=== PATIENT | male | born 1940 | race Asian ===

== ENCOUNTER 2019-03-25 08:06 | Inpatient (IN) | payer MEDICARE ==
[~2019-03-25] VITALS: Ht 170.2 cm; Wt 83.0 kg
[2019-03-25 10:55] LABS: BASOPHILS % (AUTO) 0.5 % (0.0-5.0); EOSINOPHILS % (AUTO) 2.9 % (0.0-8.0); LYMPHOCYTES % (AUTO) 10.4 % (21.0-51.0); MEAN CORPUSCULAR HEMOGLOBIN 32.9 pg (27.0-33.0); MEAN CORPUSCULAR HGB CONC 34.5 g/dL (32.0-36.0); MEAN CORPUSCULAR VOLUME 95.3 fL (79-99); MONOCYTES % (AUTO) 10.1 % (3.0-13.0); NEUTROPHILS % (AUTO) 76.1 % (40.0-77.0); PLATELET COUNT (AUTO) 172 K/uL (130-400); RED CELL DISTRIBUTION WIDTH 14.4 % (11.0-15.5); WHITE BLOOD COUNT (AUTO) 6.1 K/uL (4.8-10.8)
[2019-03-25 10:57] VITALS: BP 151/77
[2019-03-25 11:00] LABS: CREATININE 1.3 mg/dL (0.5-1.5); POTASSIUM 4.4 mmol/L (3.5-5.1)
[2019-03-25] MEDS ORDERED: ASPI-1181 PO (11:18)
[2019-03-25] MEDS ORDERED: TELM80TA10 PO (11:18)
[2019-03-25] MEDS ORDERED: TOPI50TA24 PO (11:18)
[2019-03-25] MEDS ORDERED: ATEN25TA PO (11:18)
[2019-03-25] MEDS ORDERED: AMLO10TA7 PO (11:18)
[2019-03-25] MEDS ORDERED: TOPI25TA48 PO (11:18)
[2019-03-27] VITALS (26 sets, daily range): BP systolic 116–155; BP diastolic 66–91
[2019-03-27] MEDS: CEFAZOLIN SODIUM 1 GM VIAL IVP SCH ×4 (06:00→18:15)
[2019-03-27] MEDS ORDERED: LACTATED RINGERS 1000ML 1,000 ML IV ONE (06:49)
[2019-03-27] MEDS ORDERED: DURAMORPH PF1 MG/ML 10ML AMP IV ONE (06:52)
[2019-03-27] MEDS ORDERED: BUPIVACAINE/EPI/PF 0.25% 50 ML VIAL ONE (06:52)
[2019-03-27] MEDS ORDERED: BACITRACIN 50,000 UNIT VIAL ONE (06:53)
[2019-03-27] MEDS ORDERED: THROMBIN-JMI 20000 UNIT KIT TP ONE (06:53)
[2019-03-27] MEDS ORDERED: MIDAZOLAM HCL 1 MG/ML 2ML VIAL ONE (06:55)
[2019-03-27] MEDS ORDERED: GLYCOPYRROLATE 1 MG/5 ML SYRINGE ONE (06:55)
[2019-03-27] MEDS ORDERED: SUCCINYLCHOLINE 200MG/10ML SYR ONE (06:55)
[2019-03-27] MEDS ORDERED: DEXAMETHASONE SOD PHOSPHATE 10MG/ML 1ML VIAL ONE ×2 (06:55→08:09)
[2019-03-27] MEDS ORDERED: LIDOCAINE PF 2% 5ML ABBOJECT ONE (06:55)
[2019-03-27] MEDS ORDERED: ONDANSETRON HCL 4 MG/2 ML VIAL ONE (06:56)
[2019-03-27] MEDS ORDERED: ROCURONIUM 10MG/1ML SYR 10 MG/ML ML ONE (06:56)
[2019-03-27] MEDS ORDERED: PROPOFOL 10 MG/ML 20ML VIAL IV ONE (06:56)
[2019-03-27] MEDS ORDERED: NEOSTIGMINE 5MG/5ML SYR IV ONE (06:56)
[2019-03-27] MEDS ORDERED: FENTANYL CITRATE PF 50 MCG/1 ML 2ML VIAL ONE ×2 (06:56→08:17)
[2019-03-27] MEDS ORDERED: EPHEDRINE SULFATE 50 MG/ML AMPULE ONE (06:59)
--- NOTE | 2019-03-27 07:17 | NUR ---
PUPILS pt has had cataract surgery both eyes Addendum: 03/27/19 at 0720 by NIKOLAY NORTH RN RN Amended: Links added.
[2019-03-27] MEDS ORDERED: LIDOCAINE HCL 4% LTA SOL 4 ML VIAL ONE (10:04)
[2019-03-27] MEDS: DEXAMETHASONE SOD PHOSPHATE 4 MG/ML 1ML VIAL IVP SCH ×3 (10:15→22:31)
[2019-03-27] MEDS ORDERED: PROMETHAZINE HCL 25 MG/ML 1ML AMPULE IM PRN (10:15)
[2019-03-27] MEDS ORDERED: SODIUM CHLORIDE 0.9% 10 ML VIAL IVP PRN (10:15)
[2019-03-27] MEDS ORDERED: MORPHINE SULFATE 2 MG/ML 1ML SYG IVP PRN (10:15)
[2019-03-27] MEDS: LACTATED RINGERS 1000ML 1,000 ML IV SCH ×2 (11:57→22:34)
[2019-03-27] MEDS: HYDROCODONE/ACETAMINOPHEN 5/325 MG TAB PO PRN ×2 (17:04→22:31)
[2019-03-27] MEDS ORDERED: TOPIRAMATE 25 MG TABLET PO SCH (21:00)
[2019-03-28] MEDS: CEFAZOLIN SODIUM 1 GM VIAL IVP SCH ×2 (02:15→10:15)
[2019-03-28] MEDS: DEXAMETHASONE SOD PHOSPHATE 4 MG/ML 1ML VIAL IVP SCH (03:51)
[2019-03-28 06:11] VITALS: BP 124/74
[2019-03-28] MEDS: HYDROCODONE/ACETAMINOPHEN 5/325 MG TAB PO PRN (06:36)
[2019-03-28 08:00] VITALS: BP 126/78
[2019-03-28] MEDS ORDERED: AMLODIPINE BESYLATE 5 MG TAB PO SCH (09:00)
[2019-03-28] MEDS ORDERED: MICARDIS 80 MG PO SCH (09:00)
[2019-03-28] MEDS ORDERED: ASPIRIN 81 MG EC TAB PO SCH (09:00)
[2019-03-28] MEDS ORDERED: TOPIRAMATE 100 MG TAB PO SCH (09:00)
[2019-03-28] MEDS ORDERED: ATENOLOL 25 MG TABLET PO SCH (09:00)
[2019-03-28 11:00] VITALS: BP 104/58
--- NOTE | 2019-03-28 13:17 | NUR ---
DC PLAN PATIENT DC HOME. NO NEEDS VERBALIZED BY NURSING STAFF. Addendum: 03/28/19 at 1317 by ANA LUISA SALDANA RN CM Amended: Links added.
--- NOTE | 2019-03-28 15:00 | NUR ---
S/P VOID-DISCHARGE S/P VOID OF 120. TOTAL OF 200 CC OF URINE VOIDED SINCE 7AM. S/P SANDERSON REMOVAL PRIOR TO SHIFT CHANGE. DISCHARGE TEACHING DONE WITH PATIENT, AND SON USING TEACHBACK METHOD, VERBALIZED UNDERSTANDING. NEW MEDICATION ADMINISTRATION TEACHING DONE WITH PATIENT, VERBALIZED UNDERSTANDING. PT AWARE OF NEED TO SET UP APPOINTMENT WITH DR. SOSA AND TO TAKE STAPLE REMOVAL KIT TO OFFICE. STAPLE REMOVAL KIT GIVEN TO SON. IV REMOVED, CATH TIP INTACT. DRESSING TO LOWER BACK CHANGED PER DR. SOSA ORDERS. INCISION IS DRY AND INTACT. DRESSING TEACHING DONE WITH PATIENT, AND SON, VERBALIZED UNDERSTANDING. LADY REMOVED, MEASURING 16 1/2 CM. IN LENGTH, CATH TIP INTACT. PENDING TO BE TRANSFERRED OUT VIA PRIVATE VEHICLE.
== END 2019-03-28 15:13 | disposition home or self-care (01) | DRG 517 ==
LOC: EDSTATUS 10:30 → DAHIP 03-27 06:03 → 4AH 03-27 11:23
PROVIDERS: ADMIT Neurological Surgery; ATTEND Neurological Surgery
PROC: 01NB0ZZ Release Lumbar Nerve, Open Approach (ICD-10-PCS; principal; 2019-03-27 08:07)
PROC: 01NR0ZZ Release Sacral Nerve, Open Approach (ICD-10-PCS; 2019-03-27 08:07)
PROC: 4A11X4G Monitoring of Peripheral Nervous Electrical Activity, Intraoperative, External Approach (ICD-10-PCS; 2019-03-27 08:07)
DX: M48.07 Spinal stenosis, lumbosacral region (principal); Z96.653 Presence of artificial knee joint, bilateral; I10 Essential (primary) hypertension; M19.90 Unspecified osteoarthritis, unspecified site; H91.90 Unspecified hearing loss, unspecified ear; E66.9 Obesity, unspecified; Z68.28 Body mass index [BMI] 28.0-28.9, adult
CPT/HCPCS: 36415; 72020; 80048; 85025; A4218; A4344; G0378; J0330; J0690; J1100; J2001; J2250; J2274; J2405; J2704; J2710; J3010; J3490; J7030; J7120

== ENCOUNTER → 2021-01-05 | Outpatient (CLI) | payer MEDICARE ==
[~2021-01-05] MED LIST: AMLO-258 PO; ASPI-1443 PO; ATEN25TA PO; TELM80TA10 PO; TOPI25TA48 PO; TOPI50TA24 PO
== END | disposition home or self-care (01) ==
LOC: RAH 12:16
PROVIDERS: ATTEND Physical Medicine & Rehabilitation
DX: M51.26 Other intervertebral disc displacement, lumbar region (principal); M47.817 Spondylosis without myelopathy or radiculopathy, lumbosacral region; M48.07 Spinal stenosis, lumbosacral region
CPT/HCPCS: 72148

== ENCOUNTER → 2021-02-04 | Outpatient (CLI) | payer MEDICARE | END | disposition home or self-care (01) | LOC: RAH 11:16 | PROVIDERS: ATTEND Physical Medicine & Rehabilitation | DX: M50.221 Other cervical disc displacement at C4-C5 level (principal); M48.02 Spinal stenosis, cervical region; M62.838 Other muscle spasm | CPT/HCPCS: 72141 ==

== ENCOUNTER 2021-02-12 15:39 | Observation (INO) | payer MEDICARE ==
[2021-02-12 16:49] LABS: BASOPHILS % (AUTO) 0.2 % (0.0-5.0); EOSINOPHILS % (AUTO) 0.4 % (0.0-8.0); HEMATOCRIT 31.8 % (42-54); LYMPHOCYTES % (AUTO) 3.3 % (21.0-51.0); MEAN CORPUSCULAR HEMOGLOBIN 29.7 pg (27.0-33.0); MEAN CORPUSCULAR HGB CONC 32.1 g/dL (32.0-36.0); MEAN CORPUSCULAR VOLUME 92.4 fL (79-99); MONOCYTES % (AUTO) 12.4 % (3.0-13.0); NEUTROPHILS % (AUTO) 82.6 % (40.0-77.0); PLATELET COUNT (AUTO) 250 K/uL (130-400); RED BLOOD CELL COUNT(AUTO) 3.44 MIL/uL (4.50-6.20); WHITE BLOOD COUNT (AUTO) 11.8 K/uL (4.8-10.8)
[2021-02-12 16:59] LABS: INR 1.13 (0.85-1.15); PROTHROMBIN TIME 12.2 SEC (9.6-11.6)
[2021-02-12 17:00] LABS: PARTIAL THROMBOPLASTIN TIME 26.5 SEC (26.3-35.5)
[2021-02-12 17:03] LABS: ALBUMIN 2.5 g/dL (3.5-5.0); BILIRUBIN,TOTAL 0.9 mg/dL (0.2-1.0); TOTAL PROTEIN, SERUM 6.2 g/dL (6.0-8.3)
[2021-02-12] MEDS ORDERED: ACETAMINOPHEN 325 MG TAB PO PRN (17:15)
[2021-02-12] MEDS ORDERED: PEG 3350/NA SULF,BICARB,CL/KCL 4000 ML SOLN PO SCH (17:15)
[2021-02-12] MEDS ORDERED: ONDANSETRON HCL 4 MG/2 ML VIAL IVP PRN (17:15)
[2021-02-12] MEDS ORDERED: PANTOPRAZOLE SODIUM 80 MG in SODIUM CHLORIDE 0.9% 100 ML IVP SCH (17:15)
[2021-02-12] MEDS ORDERED: PANTOPRAZOLE 40 MG/VIAL ONE (17:49)
[2021-02-12] MEDS ORDERED: SODIUM CHLORIDE 0.9% 100 ML IV ONE (17:50)
[2021-02-12 18:00] LABS: APPEARANCE,URINE Clear (CLEAR); BILIRUBIN,URINE Negative (NEGATIVE); COLOR,URINE Dark Yellow (YELLOW); GLUCOSE, URINE (UA) Negative (NEGATIVE); KETONES,URINE Negative (NEGATIVE); LEUKOCYTE ESTERASE ,URINE Trace (NEGATIVE); NITRATE,URINE Negative (NEGATIVE); OCCULT BLOOD,URINE Negative (NEGATIVE); PROTEIN,URINE Trace mg/dL (NEGATIVE)
[2021-02-12 18:15] LABS: BACTERIA,URINE Few /HPF (None Seen); MUCUS,URINE Rare LPF (None Seen); SQUAMOUS EPITHELIAL CELL,UR 0-2 /HPF (0-2)
[2021-02-12] MEDS: ATENOLOL 25 MG TABLET PO SCH (19:12)
[2021-02-12 23:22] LABS: HEMATOCRIT 29.4 % (42-54)
[2021-02-13] VITALS (21 sets, daily range): BP systolic 103–147; BP diastolic 61–84
[2021-02-13 04:39] LABS: BASOPHILS % (AUTO) 0.4 % (0.0-5.0); EOSINOPHILS % (AUTO) 0.7 % (0.0-8.0); HEMATOCRIT 25.8 % (42-54); MEAN CORPUSCULAR HEMOGLOBIN 28.9 pg (27.0-33.0); MEAN CORPUSCULAR HGB CONC 31.8 g/dL (32.0-36.0); MEAN CORPUSCULAR VOLUME 90.8 fL (79-99); MONOCYTES % (AUTO) 14.4 % (3.0-13.0); NEUTROPHILS % (AUTO) 78.6 % (40.0-77.0); PLATELET COUNT (AUTO) 211 K/uL (130-400); RED BLOOD CELL COUNT(AUTO) 2.84 MIL/uL (4.50-6.20); RED CELL DISTRIBUTION WIDTH 16.5 % (11.0-15.5); WHITE BLOOD COUNT (AUTO) 10.9 K/uL (4.8-10.8)
[2021-02-13 04:55] LABS: BILIRUBIN,TOTAL 1.1 mg/dL (0.2-1.0); CREATININE 0.9 mg/dL (0.5-1.5); POTASSIUM 3.7 mmol/L (3.5-5.1); TOTAL PROTEIN, SERUM 5.1 g/dL (6.0-8.3)
[2021-02-13] MEDS ORDERED: PROPOFOL 10 MG/ML 20ML VIAL IV ONE (08:11)
[2021-02-13] MEDS: ATENOLOL 25 MG TABLET PO SCH (09:00)
[2021-02-13 09:55] LABS: HEMATOCRIT 27.6 % (42-54)
[2021-02-13] MEDS ORDERED: PANTOPRAZOLE SODIUM 80 MG in SODIUM CHLORIDE 0.9% 100 ML IVP SCH (10:15)
[2021-02-13] MEDS ORDERED: LISI-809 PO (12:37)
[2021-02-14] VITALS: BP 132/81
[2021-02-14 04:00] VITALS: BP 145/79
[2021-02-14 04:36] LABS: BASOPHILS % (AUTO) 0.3 % (0.0-5.0); HEMATOCRIT 27.2 % (42-54); LYMPHOCYTES % (AUTO) 5.9 % (21.0-51.0); MEAN CORPUSCULAR HEMOGLOBIN 29.9 pg (27.0-33.0); MEAN CORPUSCULAR HGB CONC 32.7 g/dL (32.0-36.0); MEAN CORPUSCULAR VOLUME 91.3 fL (79-99); MONOCYTES % (AUTO) 13.6 % (3.0-13.0); NEUTROPHILS % (AUTO) 78.3 % (40.0-77.0); PLATELET COUNT (AUTO) 209 K/uL (130-400); RED BLOOD CELL COUNT(AUTO) 2.98 MIL/uL (4.50-6.20); RED CELL DISTRIBUTION WIDTH 16.8 % (11.0-15.5); WHITE BLOOD COUNT (AUTO) 12.2 K/uL (4.8-10.8)
[2021-02-14 05:07] LABS: BILIRUBIN,TOTAL 1.2 mg/dL (0.2-1.0); CREATININE 0.8 mg/dL (0.5-1.5); POTASSIUM 3.6 mmol/L (3.5-5.1); TOTAL PROTEIN, SERUM 5.2 g/dL (6.0-8.3)
[2021-02-14 08:19] VITALS: BP 110/65
[2021-02-14] MEDS ORDERED: ATENOLOL 25 MG TABLET PO SCH ×2 (09:00→21:00)
[2021-02-14] MEDS ORDERED: FUROSEMIDE 10 MG/ML 2ML VIAL IV SCH (09:00)
[2021-02-14] MEDS: ATENOLOL 25 MG TABLET PO SCH (09:00)
[2021-02-14] MEDS ORDERED: LISINOPRIL 5 MG TABLET PO SCH (09:00)
[2021-02-14] MEDS ORDERED: TOPIRAMATE 25 MG TABLET PO SCH ×2 (09:00→21:00)
[2021-02-14] MEDS ORDERED: PANTOPRAZOLE SODIUM 40 MG TABLET.DR PO SCH (09:00)
[2021-02-14] MEDS ORDERED: HYDROCORTISONE/PRAMOXINE 10 GM FOAM RC SCH (09:00)
[2021-02-14 12:09] VITALS: BP 93/66
[2021-02-14] MEDS ORDERED: FURO20TA6 PO (12:10)
[2021-02-14] MEDS ORDERED: HYDR25SU38 RC (12:10)
[2021-02-14] MEDS ORDERED: PANT40TA PO (12:10)
== END 2021-02-14 16:49 | disposition home or self-care (01) ==
LOC: EDH 15:39 → INTOOBSV 17:12 → EDHIP 17:12 → 4CH 22:34
PROVIDERS: ADMIT Family Medicine; ATTEND Family Medicine
DX: K92.1 Melena (principal); Z20.822 Contact with and (suspected) exposure to COVID-19; C15.5 Malignant neoplasm of lower third of esophagus; K29.70 Gastritis, unspecified, without bleeding; K63.5 Polyp of colon; K64.9 Unspecified hemorrhoids; D62 Acute posthemorrhagic anemia; D72.829 Elevated white blood cell count, unspecified; R74.01 Elevation of levels of liver transaminase levels; E44.0 Moderate protein-calorie malnutrition; R74.8 Abnormal levels of other serum enzymes; I10 Essential (primary) hypertension; N40.0 Benign prostatic hyperplasia without lower urinary tract symptoms; M19.90 Unspecified osteoarthritis, unspecified site; Z96.659 Presence of unspecified artificial knee joint; Z98.49 Cataract extraction status, unspecified eye; Z79.899 Other long term (current) drug therapy
CPT/HCPCS: 36415 ×3; 43239; 45378; 71045; 80053 ×3; 81001; 83690; 84484; 85014 ×2; 85018 ×2; 85025 ×3; 85610; 85730; 86850; 86900; 86901; 86923; 87426; 88305; 93005; 96374; 97039; 97161; 99285; A4222; A4223; A4606; A4620; C9113 ×2; G0378 ×46; G8979; G8980; G8981; G8982; G8983; J1940; J2704; U0003